=== PATIENT | female | born 1985 | race Hispanic/Latino ===

== ENCOUNTER 2024-08-14 01:07 | Observation (INO) | payer SELFPAY ==
[2024-08-14] MEDS ORDERED: Ondansetron PF 4 MG/2 ML Vial IVP PRN (01:31)
[2024-08-14] MEDS ORDERED: Acetaminophen 325 MG TAB PO PRN (01:31)
[2024-08-14 01:47] VITALS: BMI 35.9
[2024-08-14] MEDS: Lactated Ringer's 500 ML IV SCH (01:51)
[2024-08-14] MEDS: Lactated Ringer's 1,000 ML IV SCH (02:21)
[2024-08-14 03:25] LABS: #Basophils 0.04 10x3/uL (0.0-0.2); #Eosinophils Less than 0.03 10x3/uL (0.0-0.7); %Basophils 0.4 % (0.0-1.0); %Eosinophils 0.1 % (0.0-10.0); %Lymphocytes 18.9 % (21.0-51.0); %Monocytes 3.4 % (0.0-10.0); %Neutrophils 76.8 % (42.0-75.0); Hematocrit 37.6 % (36.0-47.0); Hemoglobin 12.3 g/dL (12.0-16.0); Mean Corpuscular HGB CONC 32.7 g/dL (32.0-36.0); Mean Corpuscular Hemoglobin 28.3 pg (27.0-31.0); Mean Corpuscular Volume 86.4 fL (78.0-98.0); Mean Platelet Volume 10.8 fL (7.4-10.4); Platelet Count 240 10x3/uL (130-400); RBC Distribution Width 12.4 % (11.5-14.5); Red Blood Cell (RBC) Count 4.35 mill/uL (4.20-5.40)
[2024-08-14 03:42] LABS: Lactic Acid 2.37 mmol/L (0.5-2.2)
[2024-08-14 04:48] LABS: Anion Gap 11 mmol/L (10-20); BUN (Urea Nitrogen) 8 mg/dL (7.0-18.7); Calc. Creatinine Clearance 158 mL/min (70-130); Carbon Dioxide 18 mmol/L (22-29); Chloride 112 mmol/L (98-107); Estimated GFR 102; Glucose 112 mg/dL (70-105); Magnesium 2.1 mg/dL (1.6-2.6); Potassium 4.1 mmol/L (3.5-5.1); Sodium 137 mmol/L (136-145)
[2024-08-14 04:50] LABS: Troponin I Less than 0.010 ng/mL (< 0.028)
[2024-08-14] MEDS ORDERED: FLU (Fluarix Triv) TS24-25(6MOS UP)/PF 45 MCG/0.5 ML Syringe IM ONE (09:00)
[2024-08-14] MEDS: Pantoprazole DR 40 MG TAB PO SCH (09:27)
[2024-08-14] MEDS: Folic Acid 1 MG TAB PO SCH (09:27)
[2024-08-14] MEDS: Thiamine 100 MG TAB PO SCH (09:27)
[2024-08-14] MEDS: Multivitamin W/ Minerals 1 TAB PO SCH (09:27)
[2024-08-14 11:53] VITALS: BP 156/91; TEMP 98.4
== END 2024-08-14 15:20 | disposition home or self-care (01) ==
LOC: OBS 01:07
PROVIDERS: ADMIT Internal Medicine; ATTEND Hospitalist
DX: R00.2 Palpitations (principal); R07.89 Other chest pain; R00.0 Tachycardia, unspecified; R03.0 Elevated blood-pressure reading, without diagnosis of hypertension; E87.6 Hypokalemia; E87.20 Acidosis, unspecified; F12.90 Cannabis use, unspecified, uncomplicated; F10.10 Alcohol abuse, uncomplicated
CPT/HCPCS: 36415; 36416; 80048; 83605; 83735; 84484; 85025; G0378